=== PATIENT | male | born 1955 | race Caucasian/White ===

== ENCOUNTER 2024-08-09 02:41 | Emergency (ER) | payer BC, SELFPAY ==
[2024-08-09 02:50] VITALS: BP 150/93
--- NOTE | 2024-08-09 03:14 | ED.GENMED ---
History of Present Illness
<LEVAR Quesada - Last Filed: 08/09/24 06:18>
General
Chief Complaint: Cardiac Symptoms
Source: patient and spouse
Time Seen by Provider: 08/09/24 03:14
History of Present Illness
History of Present Illness:
A pleasant 68-year-old male with a past medical history of A-fib, hypertension, HLD presents to the emergency room for skipped heartbeats. Patient states that he wakes up a few times each night to go to the restroom except this night upon waking he
felt his heart skipping beats. He stated that every 15 seconds or so he would notice a skipped beat which lasted for 30 minutes. The skipped beats resolved prior to admission. He does admit to a past history of atrial fibrillation 20 years ago
which he took meds for '3 months' before it self resolved. He has had no episodes of heart palpitations or recurrent arrhythmias since. Patient came to the ER so that he would documentation to take to his primary doctor for which she has an
appointment in 2 weeks. He denies SOB, LOC, chest pain, abdominal pain, fever, chills.
Past History
<LEVAR Quesada - Last Filed: 08/09/24 06:18>
Past History
ED Past Medical History: Arrthythmia (afib) and HTN
Phy Exam
<LEVAR Quesada - Last Filed: 08/09/24 06:18>
General Physical Exam
General Presentation: well appearing and no apparent distress
General age: appears stated age
General Skin: warm
General Habitus: normal
General Mental: alert
General Hydration: appears well hydrated
Eye Exam
Eye Exam: conjunctiva normal
Cardiovascular Exam
Cardiovascular Exam: regular rate/rhythm, no gallop, no murmur and normal peripheral pulses
Pulmonary Exam
Pulmonary Exam: lungs clear, no respiratory distress, no crackles and no cough
Gastrointestinal Exam
Gastrointestinal Exam: non distended
Neurological Exam
Neurological Exam: alert and oriented x3
Musculoskeletal Exam
Musculoskeletal Exam: full ROM
Skin Exam
Skin Exam: normal color, warm/dry and no rash
Psychiatric Exam
Psychiatric Exam: normal mood/affect
Course
<Dakotah Sheikh STPA - Last Filed: 08/09/24 06:18>
Orders/Labs/Results
Orders:
Orders
08/09/24 02:42
EKG [Electrocardiogram (*1)] Urgent
Reason for Study: Palpitations
EKG- Treatment ONCE
08/09/24 05:08
Complete Blood Count/With Diff Urgent
Comprehensive Metabolic Panel Urgent
NT-proBNP Urgent
PTT Urgent
Prothrombin Time Urgent
Troponin I Urgent
Vital Signs
Initial and Last Documented VS:
Initial Vital Signs
Temp Pulse Resp BP Pulse Ox
97.7 F 66 18 150/93 99
08/09/24 02:50 08/09/24 02:50 08/09/24 02:50 08/09/24 02:50 08/09/24 02:50
Last Documented Vital Signs
Temp Pulse Resp BP Pulse Ox
97.7 F 62 10 123/74 99
08/09/24 02:50 08/09/24 05:00 08/09/24 05:00 08/09/24 05:00 08/09/24 05:00
<Cody Humphreys DO - Last Filed: 08/09/24 06:02>
Orders/Labs/Results
Orders:
Orders
08/09/24 02:42
EKG [Electrocardiogram (*1)] Urgent
Reason for Study: Palpitations
EKG- Treatment ONCE
08/09/24 05:08
Complete Blood Count/With Diff Urgent
Comprehensive Metabolic Panel Urgent
NT-proBNP Urgent
PTT Urgent
Prothrombin Time Urgent
Troponin I Urgent
Vital Signs
Initial and Last Documented VS:
Initial Vital Signs
Temp Pulse Resp BP Pulse Ox
97.7 F 66 18 150/93 99
08/09/24 02:50 08/09/24 02:50 08/09/24 02:50 08/09/24 02:50 08/09/24 02:50
Last Documented Vital Signs
Temp Pulse Resp BP Pulse Ox
97.7 F 62 10 123/74 99
08/09/24 02:50 08/09/24 05:00 08/09/24 05:00 08/09/24 05:00 08/09/24 05:00
<LEVAR Quesada - Last Filed: 08/09/24 06:18>
MDM/Problems Addressed
Differential Diagnosis Includes:
Premature ventricular contractions, A-fib, Mobitz 1/Mobitz 2 heart block.
<LEVAR Quesada - Last Filed: 08/09/24 06:18>
*Critical Care Note
Total Time (30-74mins, 75-104mins- exclusive of procedures): Not Applicable
ED Attending Note
<LEVAR Quesada - Last Filed: 08/09/24 06:18>
-
Portions of this chart may have been created with voice recognition software.� Occasional wrong word or��sound alike� substitutions may have occurred due to the inherent limitations of voice recognition software.
<Cody Humphreys DO - Last Filed: 08/09/24 06:02>
ED Attending Note
Patient seen and examined by attending physician: Yes
I performed the substantive portion of visit, reviewed & personally made and approve the management plan that is documented in note by myself or ONOFRE.: Yes
ED Attending Note:
Pleasant 68-year-old male who presents today to the emergency department with palpitations. He states that 1 hour prior to arrival he woke up to go to the bathroom and felt the palpitations. Denies chest pain or shortness of breath. The patient,
who his is a PA, noticed that he had 'skipped beats'. He states that there was minimal palpitations. Symptoms resolved. Patient does have a history of A-fib in the distant past. He states that the symptoms are distinctly different. Patient
has no complaints at this time. Patient was seen in conjunction with the PA student. I have reviewed and agree with the history and treatment plan presented. On my independent physical exam, patient is awake, alert, and oriented x3, no acute
distress. Heart is regular rate and rhythm without murmurs rubs or gallops appreciated. Lungs are clear to auscultation bilaterally. Abdomen is soft and nontender. Skin is warm and dry. Moves all 4 extremities. No pedal edema noted.
I did order blood work and an x-ray. At this point patient refuses stating 'since he has no symptoms, he does not need any blood work '. He wishes to follow-up with our software reverse engineer. He does see a software reverse engineer down at [place] in the [facility]. He
wants to switch software reverse engineer to our groups in [place].
Discharge Plan
Departure
Patient Disposition: Home (Routine Discharge)
Date of Disposition: 08/09/24
Time of Disposition: 05:58
Patient with high blood pressure during this ER visit?: Yes
Condition: Good
Discharge Problem:
Palpitations
Instructions: Palpitations ED, BLOOD PRESSURE, Heart Palpitations
Prescriptions:
No Action
atorvastatin [Lipitor] 20 mg Tablet
20 mg PO DAILY
amlodipine 5 mg Tablet
5 mg PO DAILY
Referrals:
[facility] [Provider Group]
Eduardo More MD [Family Provider] - Next open appointment
Efrain Green DO [Active] - Next open appointment
Activity Restrictions/Additional Instructions:
It was a pleasure meeting you and taking part in your care. We hope for your continued healing and wellness.
Please read discharge instructions in their entirety. However, they are for general education and may not describe your exact diagnosis at discharge. Information on your ER visit and medical conditions were discussed with you along with appropriate
follow up information...
If indicated, please take your medications as instructed and indicated on discharge paperwork.
Please schedule a follow up appointment as directed. Call to schedule an appointment
Please return to the emergency department with ANY change in, persisting, or worsening of symptoms. If any of your symptoms do not improve, or persist, or become more severe within 6-12 hours, please return to the emergency department for further
care.
Please return to the emergency department if you develop a headache, neck pain/stiffness, fever greater than 100.4F, chest pain, shortness of breath, persistent nausea, vomiting, slurred speech, difficulty walking, numbness/tingling, weakness, signs
of infection or any other symptoms that are worrisome to you.
If you have any questions or concerns please do not hesitate to call the Hospital at or E-mail me directly at [email or web address]
Interventions
Interventions:
*Risk Screen - Suicide Last Done: 08/09/24 02:50
*General Assessment Last Done: 08/09/24 02:50
*Neglect/Abuse Screening Last Done: 08/09/24 02:50
*ED COVID-19 Vaccine History Last Done: 08/09/24 02:50
ED- Pulmonary Assessment Last Done: 08/09/24 03:47
ED- Cardiac Assessment Last Done: 08/09/24 03:47
Discharge Date and Time
Print Language: TONGAN
[2024-08-09 03:47] VITALS: BP 131/85
[2024-08-09 04:00] VITALS: BP 123/87
[2024-08-09 05:00] VITALS: BP 123/74
== END 2024-08-09 06:42 | disposition home or self-care (01) ==
LOC: EMR 02:41
PROVIDERS: EMERGENCY PHYSICIAN Student in an Organized Health Care Education/Training Program; FAMILY PHYSICIAN Internal Medicine
DX: R00.2 Palpitations (principal); I48.91 Unspecified atrial fibrillation; I10 Essential (primary) hypertension; E78.00 Pure hypercholesterolemia, unspecified
CPT/HCPCS: 99283; 93005

== ENCOUNTER → 2024-09-02 09:32 | Outpatient (REF) | payer BC, SELFPAY | LOC: RCS 09:32 | PROVIDERS: ATTENDING PHYSICIAN Internal Medicine Cardiovascular Disease; FAMILY PHYSICIAN Internal Medicine | DX: R00.2 Palpitations (principal) | CPT/HCPCS: 93306 ==